=== PATIENT | male | born 1965 | race Caucasian/White ===

== ENCOUNTER → 2017-02-13 | Outpatient (CLI) | payer BC ==
[~2017-02-13] MED LIST: DIPH25CA5 PO; LACT10CA3 PO; MULT-506 PO
[2017-02-13 18:18] LABS: BASO % 0.8 %; BASO ABS # 0.04 K/uL (0-0.2); COMPLETE YES; IG% 0.2 %; LYMPH % 27.8 %; LYMPH ABS # 1.37 K/uL (1.2-3.4); MEAN CELL VOLUME 87.8 fL (80-100); MEAN CORPUSCULAR HEMOGLOBIN 29.9 pg (25-34); MEAN CORPUSCULAR HGB CONC 34.1 g/dl (32-36); MEAN PLATELET VOLUME 11.1 fL (7.4-10.4); MONO % 11.8 %; NEUT % 56.4 %; PLATELET COUNT 166 K/uL (130-400); RED BLOOD COUNT 5.01 M/uL (4.7-6.1); WHITE BLOOD COUNT 4.93 K/uL (4.8-10.8)
[2017-02-13 18:55] LABS: THYROID STIMULATING HORMONE 1.27 uIu/ml (0.300-4.500)
== END | disposition home or self-care (01) ==
LOC: C.LABMFLN 15:11
PROVIDERS: ATTEND Physician Assistant
DX: R25.3 Fasciculation (principal)

== ENCOUNTER → 2017-02-23 | Outpatient (CLI) | payer BC ==
[~2017-02-23] MED LIST changes: +BND25 PO; -DIPH25CA5 PO
[2017-02-23 19:20] LABS: LYME DISEASE AB IGM NEG (NEG)
[2017-02-23 19:21] LABS: LYME DISEASE AB IGG NEG (NEG)
== END | disposition home or self-care (01) ==
LOC: C.LABMFLN 16:42
PROVIDERS: ATTEND Family Medicine
DX: M25.469 Effusion, unspecified knee (principal)

== ENCOUNTER → 2017-06-09 | Outpatient (CLI) | payer BC ==
[2017-06-09 14:16] LABS: CHOLESTEROL/HDL RATIO 4.1; PROSTATE SPECIFIC ANTIGEN 0.62 ng/ml (0.000-4.000)
== END | disposition home or self-care (01) ==
LOC: C.LABMFLN 07:35
PROVIDERS: ATTEND Family Medicine
DX: Z00.00 Encounter for general adult medical examination without abnormal findings (principal); Z13.1 Encounter for screening for diabetes mellitus; Z13.220 Encounter for screening for lipoid disorders; Z12.5 Encounter for screening for malignant neoplasm of prostate

== ENCOUNTER → 2018-01-09 | Outpatient (CLI) | payer BC ==
[~2018-01-09] MED LIST changes: -BND25 PO; +DIPH25CA5 PO
== END | disposition home or self-care (01) ==
LOC: C.LABMFLN 17:07
PROVIDERS: ATTEND Family Medicine
DX: N45.1 Epididymitis (principal)